=== PATIENT | male | born 1970 ===

== ENCOUNTER → 2024-10-22 | Day surgery (SDC) | payer OTHER ==
[~2024-10-22] MED LIST: BUPIVACAINE LIPOSOME/PF 266 MG/20 ML VIAL IJ ONE; CEFTRIAXONE SODIUM 2,000 MG VIAL ONE; DIBUCAINE 30 GM TUBE ONE; ENALAPRILAT DIHYDRATE 1.25 MG/ML VIAL IV ONE; HEMOSTATIC MATRIX 1 KIT KIT TOP ONE; METRONIDAZOLE/SODIUM CHLORIDE 500 MG/100 ML PIGGYBACK IV ONE; MORPHINE SULFATE 4 MG/ML VIAL IV ONE; POVIDONE-IODINE 118 ML BOTT TOP ONE; SUGAMMADEX SODIUM 200 MG/2 ML VIAL IV ONE
== END | disposition home or self-care (01) ==
LOC: ADM 10-16 11:45 → CIR.AMB 07:16
PROVIDERS: ATTEND Colon & Rectal Surgery
DX: K64.2 Third degree hemorrhoids (principal); K64.4 Residual hemorrhoidal skin tags